=== PATIENT | male | born 1955 | race African-American/Black ===

== ENCOUNTER 2016-10-04 19:57 | Emergency (ER) | payer MEDICAID ==
--- NOTE | 2016-10-04 21:08 | RAD ---
PROCEDURE CT scan of the abdomen and pelvis without contrast 10/04/2016 HISTORY Left flank pain. TECHNIQUE Unenhanced contiguous, 3 millimeter axial sections were obtained through the abdomen and pelvis. One or more of the following individualized dose reduction techniques were utilized for this study: 1. Automated exposure control. 2. Adjustment of the mA and/or kV according to patient size. 3. Use of iterative reconstruction technique. FINDINGS Images through the lung bases demonstrate mild emphysematous changes bilaterally. Dependent subsegmental atelectasis is seen bilaterally. The unenhanced CT appearance of the liver, spleen, and adrenal glands are within normal limits. The patient is status post left nephrectomy. A punctate calcification is seen involving the medial aspect of the mid right kidney within the cortex. A few rounded predominantly low attenuation structures are seen involving the right kidney. These measure 7 millimeters to 1.3 centimeters in size. They likely represent cysts. One of these has increased attenuation suggestive of hemorrhage. No ureteral calculus is seen. There is no evidence of obstruction of the right collecting system. Moderate atherosclerotic calcification of the abdominal aorta and its branches is seen. The abdominal aorta tapers normally. Surgical clips are seen within the gallbladder fossa consistent with a cholecystectomy. Air and stool seen throughout the colon. There is no evidence of bowel obstruction. Images through the pelvis demonstrate the urinary bladder distended with urine. Three screws are seen within the proximal left femur. Calcifications are seen within the pelvis consistent with phleboliths. No free fluid is seen. Mild to moderate degenerative changes are seen involving both hips. IMPRESSION No acute abnormality is seen. Electronically signed by: Rohan Ray MD (Oct 04, 2016 21:06:52)
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
[2016-10-04] MEDS: FENTANYL PF 100 MCG/2 ML VIAL. IV PRN ×2 (21:15→21:46)
[2016-10-04 21:21] LABS: BASO % 0 % (0-3); EOS # 0.2 x10^3/uL (0.0-0.7); EOS % 3 % (0-3); HEMATOCRIT 37.9 % (39.0-53.0); HEMOGLOBIN 12.2 g/dL (13.0-17.5); LYMPH # 1.6 x10^3/uL (1.0-4.8); LYMPH % 24 % (24-48); MEAN CORPUSCULAR HEMOGLOBIN 24 pg (25-35); MEAN CORPUSCULAR HGB CONC 32 g/dL (31-37); MEAN CORPUSCULAR VOLUME 73 fL (79-100); MONO % 14 % (0-9); NEUT # 3.9 x10^3uL (1.8-7.7); NEUT % 59 % (31-73); PLATELET COUNT 278 x10^3/uL (140-400); RED BLOOD COUNT 5.21 x10^6/uL (4.30-5.70); RED CELL DISTRIBUTION WIDTH 15.6 % (11.5-14.5); WHITE BLOOD COUNT 6.7 x10^3/uL (4.0-11.0)
[2016-10-04 21:32] LABS: BILIRUBIN,URINE NEG (NEG); CLARITY,URINE CLEAR; COLOR,URINE YELLOW; GLUCOSE,URINE NEG (NEG); NITRITE,URINE NEG (NEG); UROBILINOGEN,URINE 2 mg/dL (0.2 mg/dL)
[2016-10-04 21:34] LABS: BARBITURATES NEG (NEG); BENZODIAZEPINES NEG (NEG); CANNABINOIDS NEG (NEG); COCAINE NEG (NEG); METHADONE NEG (NEG); OPIATES NEG (NEG); PHENCYCLIDINE NEG (NEG)
[2016-10-04 21:35] LABS: ALBUMIN 3.3 g/dL (3.4-5.0); ALBUMIN/GLOBULIN RATIO 0.8 (1.0-1.7); AMPHETAMINE/METHAMPHETAMINE NEG (NEG); CALCIUM 8.5 mg/dL (8.5-10.1); CREATININE 1.3 mg/dL (0.7-1.3); GFR 56.1; POTASSIUM 3.5 mmol/L (3.5-5.1); TOTAL BILIRUBIN 0.6 mg/dL (0.2-1.0); TOTAL PROTEIN 7.2 g/dL (6.4-8.2)
[2016-10-04 21:36] LABS: BACTERIA,URINE 0 /HPF (0-FEW); SQUAMOUS EPITHELIAL CELL,UR FEW /LPF; WBC,URINE RARE /HPF (0-4)
[2016-10-04 21:46] VITALS: BP 154/100
[2016-10-04] MEDS ORDERED: HYDR-971 PO (21:48)
[2016-10-04] MEDS ORDERED: AMLO5TAB2 PO (21:54)
[2016-10-04] MEDS ORDERED: LOSA1TAB18 PO (21:54)
== END 2016-10-04 22:15 | disposition home or self-care (01) ==
LOC: ER 19:57
DX: S39.012A Strain of muscle, fascia and tendon of lower back, initial encounter (principal); I10 Essential (primary) hypertension; J44.9 Chronic obstructive pulmonary disease, unspecified; J45.909 Unspecified asthma, uncomplicated; F17.210 Nicotine dependence, cigarettes, uncomplicated; G51.0 Bell's palsy; Z87.442 Personal history of urinary calculi; Z88.6 Allergy status to analgesic agent; Z88.1 Allergy status to other antibiotic agents; Z88.8 Allergy status to other drugs, medicaments and biological substances; X58.XXXA Exposure to other specified factors, initial encounter; Y93.89 Activity, other specified; Y92.89 Other specified places as the place of occurrence of the external cause; Y99.8 Other external cause status
CPT/HCPCS: 36415; 74176; 80053; 80305; 80320; 81001; 82550; 84484; 85027; 96374; 96376; 99285; J3010; G0480; G0481

== ENCOUNTER 2017-01-13 23:17 | Emergency (ER) | payer MEDICAID ==
[~2017-01-13] VITALS: Ht 172.7 cm; Wt 51.3 kg
[~2017-01-13 23:17] MED LIST: AMLO5TAB2 PO; HYDR-971 PO; LOSA1TAB18 PO
[2017-01-14] MEDS ORDERED: MORPHINE SULFATE 10 MG/ML SYRINGE. IM ONE (00:15)
[2017-01-14 00:58] VITALS: BP 163/89
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
--- NOTE | 2017-01-14 01:35 | RAD ---
RS Compliance Statement: One or more of the following individualized dose reduction techniques were utilized for this examination: 1. Automated exposure control 2. Adjustment of the mA and/or kV according to patient size 3. Use of iterative reconstruction technique CT CHEST WO CONTRAST Clinical Indication: [id number] Fall tonight, hit right lower ribs, severe pain. Comparison: None. Technique: Helical CT imaging of the chest is performed without IV contrast. Findings: Limited evaluation of vascular structures without IV contrast. There are several bilateral subcentimeter axillary lymph nodes. No mediastinal adenopathy. Great vessels are normal caliber. Cardiac size normal, no significant pericardial effusion. The central airways are patent. There is moderate centrilobular emphysema. Minimal atelectasis posterior left lower lobe. No definite right pneumothorax is seen. There are tiny foci of air that are probably extrapleural of the right lower hemithorax, for example image 107. Mild groundglass opacity is seen in the lateral right lower lobe that may be atelectasis or contusion or scarring. Cholecystectomy. Left kidney appears to be surgically absent. Tiny nonobstructing right renal calculus. Cortical hypodensity in the right kidney, incompletely characterized, image 124. No obvious liver contusion, sensitivity is limited without IV contrast. No acute right rib fracture is identified. IMPRESSION: 1. There are tiny foci of air lower right lateral hemithorax that appear to be extrapleural. No pneumothorax is identified. 2. Mild lateral right lower lobe groundglass opacity may be atelectasis or contusion or scarring. 3. No acute right rib fracture is identified. 4. Moderate centrilobular emphysema. Electronically signed by: Yash Dia MD (01/14/2017 1:32 AM) [facility] [place]
--- NOTE | 2017-01-14 08:10 | RAD ---
Right RIBS with one view chest. History: Fall, posterior right rib pain AP portable view was taken of the chest. There is no pneumothorax or pleural effusion. Heart is normal in size. There is mild scoliosis. There is mild atelectasis in the right lung base. AP and oblique views were taken of the right ribs. There is no rib fracture or acute osseous abnormality. Impression: 1. No acute chest disease. 2. No rib fracture noted.
== END 2017-01-14 02:00 | disposition home or self-care (01) ==
LOC: ER 23:17
DX: S20.211A Contusion of right front wall of thorax, initial encounter (principal); F17.210 Nicotine dependence, cigarettes, uncomplicated; I10 Essential (primary) hypertension; J44.9 Chronic obstructive pulmonary disease, unspecified; Z87.442 Personal history of urinary calculi; G51.0 Bell's palsy; Z88.6 Allergy status to analgesic agent; Z88.1 Allergy status to other antibiotic agents; Z88.8 Allergy status to other drugs, medicaments and biological substances; W18.09XA Striking against other object with subsequent fall, initial encounter; Y93.E1 Activity, personal bathing and showering; Y99.8 Other external cause status; Y92.89 Other specified places as the place of occurrence of the external cause
CPT/HCPCS: 71101; 71250; 96372; 99284; J2270

== ENCOUNTER 2017-01-20 09:33 | Emergency (ER) | payer MEDICAID ==
[2017-01-20 09:40] VITALS: BP 162/110
[2017-01-20] MEDS ORDERED: HYDR-963 PO (10:26)
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
[2017-01-20] MEDS ORDERED: HYDROcodone/APAP 10/325 1 TAB TABLET PO ONE (10:45)
== END 2017-01-20 10:45 | disposition home or self-care (01) ==
LOC: ER 09:33
DX: S22.31XA Fracture of one rib, right side, initial encounter for closed fracture (principal); I10 Essential (primary) hypertension; J44.9 Chronic obstructive pulmonary disease, unspecified; Z88.6 Allergy status to analgesic agent; Z88.1 Allergy status to other antibiotic agents; Z88.8 Allergy status to other drugs, medicaments and biological substances; W18.09XA Striking against other object with subsequent fall, initial encounter; Y93.89 Activity, other specified; Y99.8 Other external cause status; Y92.091 Bathroom in other non-institutional residence as the place of occurrence of the external cause
CPT/HCPCS: 99283; 99284

== ENCOUNTER 2017-06-13 11:08 | Emergency (ER) | payer MEDICAID ==
[~2017-06-13] VITALS: Ht 172.7 cm; Wt 54.0 kg
[2017-06-13 11:08] VITALS: BP 113/63
[~2017-06-13 11:08] MED LIST changes: +HYDR-963 PO; -LOSA1TAB18 PO; +LOSA1TAB25 PO
--- NOTE | 2017-06-13 12:03 | RAD ---
Chest, 2 views, 06/13/2017: History: Productive cough Comparison is made to a study from 01/13/2017. Emphysematous changes are present in the lungs with minimal scattered parenchymal scars. No acute infiltrate is seen. The heart size is normal. There is no evidence of pleural fluid or pneumothorax. IMPRESSION: 1. Emphysema. 2. No acute abnormality is detected.
[2017-06-13] MEDS ORDERED: IPRATRPIUM/ALBUTEROL 0.5/2.5MG 3 ML NEBU. NEB ONE (12:10)
[2017-06-13] MEDS ORDERED: BENZONATATE 100 MG CAPSULE. PO ONE (12:10)
--- NOTE | 2017-06-13 12:33 | PHYS DOC ---
Past History Past Medical History: COPD, Hypertension, Other Past Surgical History: Other Smoking: Non-smoker Alcohol Use: Occasionally Drug Use: None Adult General Chief Complaint Chief Complaint: COUGH HPI HPI 61-year-old male patient with history of COPD without home oxygen and currently smoking that she is visiting his daughter from [place] and complaining of productive cough with yellow and green sputum pleuritic right-sided chest pain and subjective fever and chills. Eyes sick contacts, sore throat, nausea and vomiting, diarrhea and constipation, urinary symptom. Patient rated his pain 9/ 10 and asking for pain medication frequently. Review of Systems Review of Systems Constitutional: Reports subjective fever or chills [] Eyes: Denies change in visual acuity, redness, or eye pain [] HENT: Denies nasal congestion or sore throat [] Respiratory: Reports cough and shortness of breath [] Cardiovascular: No additional information not addressed in HPI [] GI: Denies abdominal pain, nausea, vomiting, bloody stools or diarrhea [] : Denies dysuria or hematuria [] Musculoskeletal: Denies back pain or joint pain [] Integument: Denies rash or skin lesions [] Neurologic: Denies headache, focal weakness or sensory changes [] Endocrine: Denies polyuria or polydipsia [] All other systems were reviewed and found to be within normal limits, except as documented in this note. Current Medications Current Medications Current Medications Medications (Trade) Dose Ordered Sig/Clyde Start Time Stop Time Status Last Admin Dose Admin Albuterol/ Ipratropium (Duoneb) 3 ml 1X ONCE 06/13/17 12:10 06/13/17 12:11 DC 06/13/17 12:03 3 ML Benzonatate (Tessalon Perle) 100 mg 1X ONCE 06/13/17 12:10 06/13/17 12:11 DC 06/13/17 12:03 100 MG Diphenhydramine HCl (Benadryl) 25 mg 1X ONCE 06/13/17 12:45 06/13/17 12:46 06/13/17 12:31 25 MG Allergies Allergies Allergies Coded Allergies Type Severity Reaction Last Updated Verified tramadol Allergy Intermediate gi 06/13/17 Yes aspirin Allergy Unknown 10/04/16 Yes erythromycin base Allergy Unknown 10/04/16 Yes ibuprofen Allergy Unknown 10/04/16 Yes lorazepam Allergy Unknown 4/5/17 Yes Physical Exam Physical Exam Constitutional: Mild distress, non-toxic appearance,anxious, thin. [] HENT: Normocephalic, atraumatic, bilateral external ears normal, oropharynx moist, no oral exudates, nose normal. [] Eyes: PERRLA, EOMI, conjunctiva normal, no discharge. [] Neck: Normal range of motion, no tenderness, supple, no stridor. [] Cardiovascular:Heart rate regular rhythm, no murmur [] Lungs & Thorax: Bilateral breath sounds clear to auscultation [] Abdomen: Bowel sounds normal, soft, no tenderness, no masses, no pulsatile masses. [] Skin: Warm, dry, no erythema, no rash. [] Back: No tenderness, no CVA tenderness. [] Extremities: Left above-knee amputation Neurologic: Alert and oriented X 3, normal motor function, normal sensory function, no focal deficits noted. [] Psychologic: Affect normal, judgement normal, anxious Current Patient Data Vital Signs Vital Signs Date Time Temp Pulse Resp B/P (MAP) Pulse Ox O2 Delivery O2 Flow Rate FiO2 06/13/17 12:08 96 Room Air 06/13/17 11:08 97.6 82 18 EKG EKG [] Radiology/Procedures Radiology/Procedures [] Course & Med Decision Making Course & Med Decision Making Pertinent Imaging studies reviewed. (See chart for details) Evaluation of patient in ER showed 61-year-old male patient with history of COPD and currently a smoker who visiting his daughter complaining of productive cough and right-sided chest pain. Patient was anxious and asking for pain medications frequently. Patient walking to nursing station several times for getting pain medication. Patient had unremarkable chest x-ray except for COPD. She and treated with Benadryl and DuoNeb in ER and instructed to quit smoking and follow up with his primary care physician. Dragon Disclaimer Dragon Disclaimer This electronic medical record was generated, in whole or in part, using a voice recognition dictation system. Departure Departure: Impression: Primary Impression: COPD exacerbation Additional Impressions: Tobacco abuse Tobacco abuse counseling Drug-seeking behavior History of left above knee amputation Pleuritic chest pain Disposition: HOME, SELF-CARE (At 1235) Condition: IMPROVED Referrals: NON,STAFF (PCP) Patient Instructions: Chronic Obstructive Pulmonary Disease Exacerbation Additional Instructions: Quit Smoking Take your home inhaler Follow-up with your primary care physician in 2-3 days Scripts [Percogesic] No Conflict Check 1 TAB PO TID Y for PAIN, #14 Prov: KAYLEY BEATTY MD 06/13/17 Benzonatate (TESSALON PERLE) 100 Mg Capsule 1 CAP PO TID, #21 CAP Prov: KAYLEY BEATTY MD 06/13/17 Doxycycline Hyclate (DOXYCYCLINE HYCLATE) 100 Mg Tablet.dr 1 TAB PO BID, #14 TAB Prov: KAYLEY BEATTY MD 06/13/17 Methylprednisolone (MEDROL) 4 Mg Tab.ds.pk 1 PKG PO UD, #1 PKG Prov: KAYLEY BEATTY MD 06/13/17 Problem Qualifiers KAYLEY BEATTY MD Jun 13, 2017 12:33
[2017-06-13] MEDS ORDERED: METH4TAB2 PO (12:39)
[2017-06-13] MEDS ORDERED: BENZ100C PO (12:39)
[2017-06-13] MEDS ORDERED: Percogesic PO (12:39)
[2017-06-13] MEDS ORDERED: DOXY100T9 PO (12:39)
[2017-06-13] MEDS ORDERED: diphenhydrAMINE HCL 25 MG CAPSULE PO ONE (12:45)
== END 2017-06-13 12:44 | disposition home or self-care (01) ==
LOC: ER 11:08
DX: J44.1 Chronic obstructive pulmonary disease with (acute) exacerbation (principal); R07.89 Other chest pain; Z76.5 Malingerer [conscious simulation]; Z89.612 Acquired absence of left leg above knee; I10 Essential (primary) hypertension; F17.200 Nicotine dependence, unspecified, uncomplicated; Z88.6 Allergy status to analgesic agent; Z88.1 Allergy status to other antibiotic agents; Z88.8 Allergy status to other drugs, medicaments and biological substances
CPT/HCPCS: 71020; 94640; 99284; J7620; Q0163

== ENCOUNTER 2017-06-18 10:41 | Emergency (ER) | payer MEDICAID ==
[~2017-06-18] VITALS: Ht 172.7 cm; Wt 54.0 kg
[~2017-06-18 10:41] MED LIST changes: +BENZ100C PO; +DOXY100T9 PO; +METH4TAB2 PO; +Percogesic PO
--- NOTE | 2017-06-18 11:51 | PHYS DOC ---
Past History Past Medical History: COPD, Hypertension, Other Past Surgical History: Other Smoking: Non-smoker Alcohol Use: Occasionally Drug Use: None Adult General Chief Complaint Chief Complaint: SHOULDER INJURY HPI HPI 61-year-old male patient with history of left above knee amputation and frequent emergency room visits states he lost his balance last night and had a fall and landed on his left shoulder without head injury or other injuries. Patient complaining of pain in left shoulder that getting force with movement and is states he thinks he had broken shoulder. Patient denies focal neuro deficit, fever and chills, nausea vomiting, blurred vision, headache. Review of Systems Review of Systems Constitutional: Denies fever or chills [] Eyes: Denies change in visual acuity, redness, or eye pain [] HENT: Denies nasal congestion or sore throat [] Respiratory: Denies cough or shortness of breath [] Cardiovascular: No additional information not addressed in HPI [] GI: Denies abdominal pain, nausea, vomiting, bloody stools or diarrhea [] : Denies dysuria or hematuria [] Musculoskeletal: Denies back pain , report's joint pain [] Integument: Denies rash or skin lesions [] Neurologic: Denies headache, focal weakness or sensory changes [] Endocrine: Denies polyuria or polydipsia [] All other systems were reviewed and found to be within normal limits, except as documented in this note. Current Medications Current Medications Current Medications Medications (Trade) Dose Ordered Sig/Clyde Start Time Stop Time Status Last Admin Dose Admin Diphenhydramine HCl (Benadryl) 50 mg 1X ONCE 06/18/17 11:45 06/18/17 11:46 UNV Allergies Allergies Allergies Coded Allergies Type Severity Reaction Last Updated Verified tramadol Allergy Intermediate gi 06/13/17 Yes aspirin Allergy Unknown 10/04/16 Yes erythromycin base Allergy Unknown 10/04/16 Yes ibuprofen Allergy Unknown 10/04/16 Yes lorazepam Allergy Unknown 10/04/16 Yes Physical Exam Physical Exam Constitutional: mild distress, anxious, non-toxic appearance. [] HENT: Normocephalic, atraumatic, bilateral external ears normal, oropharynx moist, no oral exudates, nose normal. [] Eyes: PERRLA, EOMI, conjunctiva normal, no discharge. [] Neck: Normal range of motion, no tenderness, supple, no stridor. [] Cardiovascular:Heart rate regular rhythm, no murmur [] Lungs & Thorax: Bilateral breath sounds clear to auscultation [] Abdomen: Bowel sounds normal, soft, no tenderness, no masses, no pulsatile masses. [] Skin: Warm, dry, no erythema, no rash. [] Back: No tenderness, no CVA tenderness. [] Extremities: Left shoulder without deformity or edema, normal range of motion, no neurovascular deficit, left above-knee amputation Neurologic: Alert and oriented X 3, normal motor function, normal sensory function, no focal deficits noted. [] Psychologic: Affect normal, judgement normal, mood normal. [] Current Patient Data Vital Signs Vital Signs Date Time Temp Pulse Resp B/P (MAP) Pulse Ox O2 Delivery O2 Flow Rate FiO2 06/18/17 10:45 98.3 101 18 94 Room Air EKG EKG [] Radiology/Procedures Radiology/Procedures [] Course & Med Decision Making Course & Med Decision Making Pertinent Imaging studies reviewed. (See chart for details) Evaluation of patient in ER showed 61-year-old female patient presented to ER because of a fall and injury to left shoulder. Patient had unremarkable physical exam and x-ray of his shoulder and instructed to apply ice on his shoulder and follow up with his primary care physician. Patient had frequent emergency room visits and drug-seeking behavior and asking for pain medication frequently. [] Dragon Disclaimer Dragon Disclaimer This electronic medical record was generated, in whole or in part, using a voice recognition dictation system. Departure Departure: Impression: Primary Impression: Injury of left shoulder Additional Impressions: Fall at home History of above knee amputation Drug-seeking behavior Anxiety Disposition: HOME, SELF-CARE (At 1150) Condition: STABLE Referrals: NON,STAFF (PCP) Patient Instructions: Fall Prevention and Home Safety, Muscle Strain Additional Instructions: Continue home medication Follow-up with your primary care physician as needed Apply ice on the affected areas Problem Qualifiers KAYLEY BEATTY MD Jun 18, 2017 11:51
[2017-06-18] MEDS ORDERED: diphenhydrAMINE HCL 25 MG CAPSULE PO ONE (12:00)
[2017-06-18 12:05] VITALS: BP 128/96
--- NOTE | 2017-06-18 12:11 | RAD ---
Three-view left shoulder radiographs 06/18/2017 Clinical history: Left shoulder pain post fall. AP internal and external rotation and transscapular digital radiographs of the left shoulder were obtained. No fracture or dislocation of the left shoulder is seen. Mild degenerative changes are seen involving the left glenohumeral joint. Mild to moderate degenerative changes are seen along the left AC joint. Impression: No fracture or dislocation of the left shoulder is seen.
== END 2017-06-18 12:08 | disposition home or self-care (01) ==
LOC: ER 10:41
DX: S49.92XA Unspecified injury of left shoulder and upper arm, initial encounter (principal); Z76.5 Malingerer [conscious simulation]; F41.9 Anxiety disorder, unspecified; I10 Essential (primary) hypertension; J44.9 Chronic obstructive pulmonary disease, unspecified; Z89.612 Acquired absence of left leg above knee; Z88.1 Allergy status to other antibiotic agents; Z88.6 Allergy status to analgesic agent; Z88.8 Allergy status to other drugs, medicaments and biological substances; W01.0XXA Fall on same level from slipping, tripping and stumbling without subsequent striking against object, initial encounter; Y93.89 Activity, other specified; Y99.8 Other external cause status; Y92.89 Other specified places as the place of occurrence of the external cause
CPT/HCPCS: 73030; 99284; Q0163

== ENCOUNTER 2017-07-13 18:24 | Emergency (ER) | payer MEDICAID ==
[~2017-07-13] VITALS: Ht 172.7 cm; Wt 54.0 kg
[2017-07-13 18:30] VITALS: BP 133/84
[2017-07-13 22:08] LABS: INFLUENZA A PATIENT NEGATIVE (NEGATIVE); INFLUENZA B PATIENT NEGATIVE (NEGATIVE)
[2017-07-13] MEDS ORDERED: BENZ100C PO (22:50)
[2017-07-13] MEDS ORDERED: AMOX1TAB61 PO (22:50)
[2017-07-13] MEDS ORDERED: METH4TAB2 PO (22:50)
--- NOTE | 2017-07-13 22:50 | PHYS DOC ---
Past History Past Medical History: Asthma, COPD, Hypertension, Other Additional Past Medical Histor: Pneumothorax Past Surgical History: Cholecystectomy, Other Additional Past Surgical Histo: right chest tube Smoking: Quit Less Than 1 Year (3 weeks ago) Alcohol Use: Occasionally Drug Use: None Social History Narrative: Lives in [facility], here visiting family Adult General Chief Complaint Chief Complaint: FLU SYMPTOM HPI HPI Patient is a 62 year old male who presents with body aches, fever and chills. Started on Sunday. He is here from [place]. He has been coughing and has had a fever "all week." He does not have his nebulizer here but does have his inhaler. He states he just quit smoking 3 weeks ago. No chest pain and no shortness of air. Review of Systems Review of Systems Constitutional: POS fever & chills Eyes: Denies change in visual acuity, redness, or eye pain HENT: POS nasal congestion but denies sore throat Respiratory: POS cough but denies shortness of breath Cardiovascular: No chest pain GI: Denies abdominal pain, nausea, vomiting, bloody stools or diarrhea : Denies dysuria or hematuria Musculoskeletal: Denies back pain; POS body aches Integument: Denies rash or skin lesions Neurologic: Denies headache, focal weakness or sensory changes All other systems were reviewed and found to be within normal limits, except as documented in this note. Current Medications Current Medications Current Medications Albuterol/ Ipratropium (Duoneb) 3 ml 1X ONCE NEB Last administered on at 22:57; Start 07/13/17 at 23:00; Stop 07/13/17 at 23:01; Status DC Amoxicillin/ Clavulanate Potassium (Augmentin 875/ 125mg) 1 tab 1X ONCE PO Last administered on 07/13/17at 23:01; Start 07/13/17 at 23:00; Stop 07/13/17 at 23:01; Status DC Benzonatate (Tessalon Perle) 100 mg 1X ONCE PO Last administered on 07/13/17at 23:00; Start 07/13/17 at 23:00; Stop 07/13/17 at 23:01; Status DC Acetaminophen (Tylenol) 1,000 mg 1X ONCE PO Last administered on 07/13/17at 23: 00; Start 07/13/17 at 23:00; Stop 07/13/17 at 23:01; Status DC Albuterol/ Ipratropium (Duoneb) 3 ml STK-MED ONCE .ROUTE ; Start 07/13/17 at 22: 53; Stop 07/13/17 at 22:54; Status DC Active Scripts Active Augmentin 875-125 Tablet (Amoxicillin/Potassium Clav) 1 Each Tablet 1 Tab PO BID Medrol (Methylprednisolone) 4 Mg Tab.ds.pk 1 Pkg PO UD Tessalon Perle (Benzonatate) 100 Mg Capsule 1 Cap PO TID PRN [Percogesic] 1 Tab PO TID PRN Tessalon Perle (Benzonatate) 100 Mg Capsule 1 Cap PO TID Doxycycline Hyclate 100 Mg Tablet.dr 1 Tab PO BID Medrol (Methylprednisolone) 4 Mg Tab.ds.pk 1 Pkg PO UD [place] 10-325 Tablet (Hydrocodone Bit/Acetaminophen) 1 Each Tablet 1 Tab PO PRN Q6HRS PRN 5 Days Losartan-Hctz 100-12.5 Mg Tab (Losartan/Hydrochlorothiazide) 1 Each Tablet 1 Tab PO DAILY Amlodipine Besylate 5 Mg Tablet 1 Tab PO DAILY [place] 5-325 Tablet (Hydrocodone Bit/Acetaminophen) 1 Each Tablet 1 Tab PO PRN Q6HRS PRN Allergies Allergies Allergies Coded Allergies Type Severity Reaction Last Updated Verified tramadol Allergy Intermediate gi 06/13/17 Yes aspirin Allergy Unknown 10/04/16 Yes erythromycin base Allergy Unknown 10/04/16 Yes ibuprofen Allergy Unknown 10/04/16 Yes lorazepam Allergy Unknown 10/04/16 Yes Physical Exam Physical Exam Constitutional: Well developed, well nourished, no acute distress, non-toxic appearance. HENT: Normocephalic, atraumatic, Tympanic membranes clear bilaterally; bilateral external ears normal, oropharynx moist, no oral exudates, nose normal. Eyes: PERRLA, EOMI, conjunctiva normal, no discharge. Neck: Normal range of motion, no tenderness, supple, no stridor. Cardiovascular:Heart rate regular rhythm, no murmur Lungs & Thorax: Bilateral breath sounds clear to auscultation; no wheezing. Abdomen: Bowel sounds normal, soft, no tenderness, no masses, no pulsatile masses. Skin: Warm, dry, no erythema, no rash. Back: No tenderness, no CVA tenderness. Extremities: No tenderness, no cyanosis, no clubbing, ROM intact, no edema. Neurologic: Alert and oriented X 3, normal motor function, normal sensory function, no focal deficits noted. Current Patient Data Vital Signs Vital Signs Date Time Temp Pulse Resp B/P (MAP) Pulse Ox O2 Delivery O2 Flow Rate FiO2 07/13/17 18:30 101.1 103 20 98 Room Air Lab Results Laboratory Tests Test 07/13/17 21:30 Influenza Type A (Rapid) Negative (NEGATIVE) Influenza Type B (Rapid) Negative (NEGATIVE) Radiology/Procedures Radiology/Procedures CXR interpreted by myself at 2230 PM with flattened lung solomon consistent with COPD changes, no pleural effusion, no pneumothorax, normal mediastinum, no infiltrate. Course & Med Decision Making Course & Med Decision Making Evaluated patient. Influenza was sent. Chest x-ray obtained due to her week of fever and history of COPD. Influenza was negative; duoneb given. Due to risk factors he was placed on Augmentin and tessalon perles- Dosed here. Rx:for medrol dose uli, augmentin and tessalon perles. I have spoken with the patient and/or caregivers. I have explained the patient' s condition, diagnosis and treatment plan based on the information available to me at this time. I have answered the patient's and/or caregiver's questions and addressed any concerns. The patient and/or caregivers have as good an understanding of the patient's diagnosis, condition and treatment plan as can be expected at this point. The patient's condition is stable and appropriate for discharge from the emergency department. The patient will pursue further outpatient evaluation with the primary care physician or other designated or consulting physician as outlined in the discharge instructions. The patient and/or caregivers are agreeable to this plan of care and follow-up instructions have been explained in detail. The patient and/or caregivers have received these instructions in written format and have expressed an understanding of the discharge instructions. The patient and/or caregivers are aware that any significant change in condition or worsening of symptoms should prompt an immediate return to this or the closest emergency department or a call to 911. Jorge Alberto Disclaimer Dragon Disclaimer This electronic medical record was generated, in whole or in part, using a voice recognition dictation system. Departure Departure: Impression: Primary Impression: Viral syndrome Additional Impressions: Bronchitis COPD exacerbation Disposition: HOME, SELF-CARE Condition: STABLE Referrals: NON,STAFF (PCP) Patient Instructions: Acute Bronchitis, Chronic Obstructive Pulmonary Disease Exacerbation, Viral Syndrome Additional Instructions: YOUR INFLUENZA WAS NEGATIVE HERE. YOU WERE GIVEN YOUR FIRST DOSE OF ANTIBIOTICS AND TESSALON PEARLES FOR THE COUGH. Scripts Amoxicillin/Potassium Clav (AUGMENTIN 875-125 TABLET) 1 Each Tablet 1 TAB PO BID, #14 TAB Prov: HEMANT KEN MD 07/13/17 Methylprednisolone (MEDROL) 4 Mg Tab.ds.pk 1 PKG PO UD, #1 PKG Prov: HEMANT KEN MD 07/13/17 Benzonatate (TESSALON PERLE) 100 Mg Capsule 1 CAP PO TID Y for COUGH, #21 CAP Prov: HEMANT KEN MD 07/13/17 Problem Qualifiers HEMANT KEN MD Jul 13, 2017 22:50
[2017-07-13] MEDS ORDERED: IPRATRPIUM/ALBUTEROL 0.5/2.5MG 3 ML NEBU. ONE (22:53)
[2017-07-13] MEDS ORDERED: AMOXICILLIN/K CLAV 875/125MG TABLET. PO ONE (23:00)
[2017-07-13] MEDS ORDERED: IPRATRPIUM/ALBUTEROL 0.5/2.5MG 3 ML NEBU. NEB ONE (23:00)
[2017-07-13] MEDS ORDERED: BENZONATATE 100 MG CAPSULE. PO ONE (23:00)
[2017-07-13] MEDS ORDERED: ACETAMINOPHEN 500 MG TABLET PO ONE (23:00)
--- NOTE | 2017-07-14 08:43 | RAD ---
2 view chest 07/13/2017 Comparison: Chest 06/13/2017 Clinical indication: Chest congestion. Findings: Cardiac and mediastinal silhouettes are unremarkable. There is hyperexpansion of both lungs. No pleural effusion, pneumothorax or focal consolidation. Impression: 1. No acute cardiopulmonary abnormality. 2. Hyperexpansion of both lungs may represent emphysema.
== END 2017-07-13 23:00 | disposition home or self-care (01) ==
LOC: ER 18:24
DX: B34.9 Viral infection, unspecified (principal); J44.1 Chronic obstructive pulmonary disease with (acute) exacerbation; I10 Essential (primary) hypertension; Z87.891 Personal history of nicotine dependence; Z88.8 Allergy status to other drugs, medicaments and biological substances
CPT/HCPCS: 71046; 87804; 94640; 99285; J7620